=== PATIENT | female | born 1995 | race Caucasian/White ===

== ENCOUNTER 2017-04-10 14:37 | Emergency (ER) | payer BC ==
[2017-04-10 14:46] VITALS: BP 127/67
--- NOTE | 2017-04-10 15:45 | UC ---
Abdominal Pain Female HPI - HPI Summary HPI Summary: Patient is 17 weeks . 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 she started having lower abdominal cramping, denies any spotting. - History of Current Complaint Chief Complaint: UCAbdominalPain Stated Complaint: 17 WEEKS PT CRAMPING Time Seen by Provider: 04/10/17 14:50 Hx Obtained From: Patient Hx Last Menstrual Period: PT NOT SURE ?: Yes Onset/Duration: Sudden Onset, Lasting Hours Timing: Constant Severity Initially: Moderate Severity Currently: Mild Location: Suprapubic Radiates: No Character: Cramping Aggravating Factor(s): Nothing Alleviating Factor(s): Other: - Rest Allergies/Adverse Reactions: Allergies Allergy/AdvReac Type Severity Reaction Status Date / Time No Known Allergies Allergy Verified 04/10/17 14:40 Home Medications: Home Medications Vitamin TAB* 1 tab PO DAILY 04/10/17 [History Confirmed 04/10/17] PMH/Surg Hx/FS Hx/Imm Hx Previously Healthy: Yes - Surgical History Surgical History: None - Family History Known Family History: Negative: Diabetes - Social History Alcohol Use: None Substance Use Type: None Smoking Status (MU): Never Smoked Tobacco - Immunization History Most Recent Influenza Vaccination: Not the Season Review of Systems Constitutional: Negative Skin: Negative Eyes: Negative ENT: Negative Respiratory: Negative Cardiovascular: Negative Gastrointestinal: Abdominal Pain Genitourinary: Negative Motor: Negative Neurovascular: Negative Musculoskeletal: Negative Neurological: Negative Psychological: Negative Is Patient Immunocompromised?: No All Other Systems Reviewed And Are Negative: Yes Physical Exam Triage Information Reviewed: Yes Appearance: Well-Appearing, Well-Nourished, Pain Distress Vital Signs: Initial Vital Signs Temp 98.1 F 04/10/17 14:41 Pulse 66 04/10/17 14:41 Resp 20 04/10/17 14:41 BP 127/67 04/10/17 14:41 Pulse Ox 100 04/10/17 14:41 Vital Signs Reviewed: No Eye Exam: Normal ENT Exam: Normal Dental Exam: Normal Neck exam: Normal Neck: Positive: Supple, Nontender, No Lymphadenopathy Respiratory Exam: Normal Respiratory: Positive: Chest non-tender, Lungs clear, Normal breath sounds Cardiovascular Exam: Normal Cardiovascular: Positive: RRR, No Murmur, Pulses Normal Abdomen Description: Positive: Nontender, No Organomegaly, Soft, Other: - in lower abdomen, no palpable distention and tightness, palpation does not increase pain FHR 156 Bowel Sounds: Positive: Present Musculoskeletal Exam: Normal Musculoskeletal: Positive: Strength Intact, ROM Intact, No Edema Neurological Exam: Normal Neurological: Positive: Alert, Muscle Tone Normal Psychological Exam: Normal Skin Exam: Normal Abd Pain Female Course/Dx - Course Course Of Treatment: hx obtained, exam performed ,meds reviewed, UA was negative , educated on rest and hydration, report to ER if symptoms persist with rest or she has any spotting - Differential Dx/Diagnosis Differential Diagnosis: Appendicitis, Bowel Obstruction, , Urinary Tract Infection Provider Diagnoses: second trimester. abdominal cramping Discharge - Discharge Plan Condition: Stable Disposition: HOME Patient Education Materials: Abdominal Pain in (ED) Referrals: Sydnie WASHINGTON,Wilfrid Guevara [Primary Care Provider] - Additional Instructions: 1. Go home, lay down, drink plenty of fluid, you can take a tylenol for any pain. 2. if the cramping subsides, continue to keep lifting to a minimum and follow up with Dr harrell next week 3. If the cramping continues, you develop any spotting or increased pain, please report to the ER. 4. we were able to hear the heart tones, 156.
== END 2017-04-10 15:40 | disposition home or self-care (01) ==
LOC: UCCORT 14:37
DX: O26.892 Other specified pregnancy related conditions, second trimester (principal); R10.30 Lower abdominal pain, unspecified; Z3A.17 17 weeks gestation of pregnancy
CPT/HCPCS: 81003; 99201; G0463

== ENCOUNTER 2017-12-01 11:16 | Emergency (ER) | payer BC, OTHER ==
[2017-12-01 12:13] VITALS: BP 129/69
--- NOTE | 2017-12-01 12:29 | UC ---
Lower Extremity/Ankle HPI - HPI Summary HPI Summary: right ankle pain x 1 day inversion injury of right ankle at work pain lateral ankle increase pain with walking, improves with rest - History of Current Complaint Chief Complaint: UCLowerExtremity Stated Complaint: W/C LT FOOT INJURY Time Seen by Provider: 12/01/17 12:18 Hx Obtained From: Patient Hx Last Menstrual Period: STILL NOT GETTING ONE JUST GAVE ?: No Onset/Duration: Sudden Onset, Lasting Days - 1, Still Present Severity Initially: Moderate Severity Currently: Moderate Pain Intensity: 5 Aggravating Factor(s): Standing, Ambulation Alleviating Factor(s): Rest, Elevation, Ice Able to Bear Weight: No Related History: Occupational Injury - Allergies/Home Medications Allergies/Adverse Reactions: Allergies Allergy/AdvReac Type Severity Reaction Status Date / Time No Known Allergies Allergy Verified 04/10/17 14:40 Home Medications: Home Medications Progestin Only Control 1 each PO DAILY 12/01/17 [History Confirmed ] PMH/Surg Hx/FS Hx/Imm Hx Previously Healthy: Yes - Surgical History Surgical History: None - Family History Known Family History: Negative: Diabetes - Social History Alcohol Use: None Substance Use Type: None Smoking Status (MU): Never Smoked Tobacco - Immunization History Most Recent Influenza Vaccination: Not the Season Review of Systems Constitutional: Negative Skin: Negative Eyes: Negative ENT: Negative Respiratory: Negative Cardiovascular: Negative Gastrointestinal: Negative Is Patient Immunocompromised?: No All Other Systems Reviewed And Are Negative: Yes Physical Exam Triage Information Reviewed: Yes Appearance: Well-Appearing, No Pain Distress, Well-Nourished Vital Signs: Initial Vital Signs Temp 97.5 F 12/01/17 12:06 Pulse 63 12/01/17 12:06 Resp 15 12/01/17 12:06 BP 129/69 12/01/17 12:06 Pulse Ox 98 12/01/17 12:06 Vital Signs Reviewed: Yes Eye Exam: Normal Eyes: Positive: Conjunctiva Clear ENT: Positive: Normal ENT inspection, Hearing grossly normal, Pharynx normal Neck exam: Normal Respiratory: Positive: Chest non-tender, Lungs clear, Normal breath sounds Cardiovascular: Positive: RRR, No Murmur, Pulses Normal Musculoskeletal: Positive: Other: - right ankle : mild swelling lateral ankle, + tenderness lateral ankle good rom on plantar/dorsi flexion , limited strength Diagnostics - Laboratory Diagnostic Studies Completed/Ordered: right ankle xray : FINDINGS: There is an ossicle or old avulsion fracture from the lateral malleolus. There. is no acute fracture. The ankle mortise is intact. The soft tissues are normal. IMPRESSION: NO ACUTE BONY FINDINGS. Lower Extremity Course/Dx - Differential Dx/Diagnosis Provider Diagnoses: sprain right ankle Discharge - Sign-Out/Discharge Documenting (check all that apply): Discharge/Admit/Transfer - Discharge Plan Condition: Stable Disposition: HOME Patient Education Materials: Ankle Sprain (ED) Referrals: Sydnie WASHINGTON,Wilfrid Guevara [Primary Care Provider] - 7 Days - Billing Disposition and Condition Condition: STABLE Disposition: Home
--- NOTE | 2017-12-01 12:45 | RAD ---
INDICATION: Right ankle pain COMPARISON: None TECHNIQUE: AP, lateral, and oblique views were obtained. FINDINGS: There is an ossicle or old avulsion fracture from the lateral malleolus. There is no acute fracture. The ankle mortise is intact. The soft tissues are normal. IMPRESSION: NO ACUTE BONY FINDINGS.
== END 2017-12-01 12:58 | disposition home or self-care (01) ==
LOC: UCCORT 11:16
DX: S93.401A Sprain of unspecified ligament of right ankle, initial encounter (principal); X50.9XXA Other and unspecified overexertion or strenuous movements or postures, initial encounter; Y92.89 Other specified places as the place of occurrence of the external cause
CPT/HCPCS: 99212; G0463